=== PATIENT | female | born 1975 | race Caucasian/White ===

== ENCOUNTER 2020-07-01 19:59 | Emergency (ER) | payer OTHER, MEDICAID, SELFPAY ==
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
== END 2020-07-01 20:30 | disposition short-term general hospital (02) ==
LOC: ED 07-11 09:39
PROVIDERS: Emergency Provider Emergency Medicine; Family Provider Family Medicine; PCP Family Medicine; Referring Provider Emergency Medicine
DX: S32.9XXA Fracture of unspecified parts of lumbosacral spine and pelvis, initial encounter for closed fracture (principal); S71.112A Laceration without foreign body, left thigh, initial encounter; S71.111A Laceration without foreign body, right thigh, initial encounter; V89.2XXA Person injured in unspecified motor-vehicle accident, traffic, initial encounter

== ENCOUNTER → 2020-09-09 07:41 | Outpatient (CLI) | payer OTHER, MEDICAID, SELFPAY ==
--- NOTE | 2020-09-09 07:42 | DI.US.S_ITS ---
PROCEDURE: US ABDOMEN LIMITED INDICATIONS: ABDOMINAL MASS ?HERNIA TECHNIQUE: Real-time focused scanning was performed of the abdomen, with image documentation. COMPARISON: None. FINDINGS: Scanning is performed at the area of clinical concern at the region of the left posterior flank, inferior to the kidney. At this site, no masses can be seen. No hernias can be seen, including with standing and with Valsalva maneuver. IMPRESSION: Negative study, without mass or hernia seen at the area of clinical concern. Dictated by: Steven Varghese M.D. on 09/09/2020 at 9:16 Approved by: Steven Varghese M.D. on 09/09/2020 at 9:18
== END ==
PROVIDERS: PCP Family Medicine; Referring Provider Family Medicine; Visit Provider Family Medicine
DX: R19.00 Intra-abdominal and pelvic swelling, mass and lump, unspecified site (principal)
CPT/HCPCS: 76705

== ENCOUNTER → 2020-09-27 12:12 | Outpatient (CLI) | payer OTHER, MEDICAID, SELFPAY ==
--- NOTE | 2020-09-27 12:13 | DI.CT.S_ITS ---
PROCEDURE: CT ABDOMEN WO CON INDICATIONS: Left flank pain TECHNIQUE: After the administration of oral contrast, 5 mm thick sections acquired from the diaphragms to the iliac crests. 5 mm coronal and sagittal reformats were then performed. For radiation dose reduction, the following was used: automated exposure control, adjustment of mA and/or kV according to patient size. COMPARISON: None. FINDINGS: Image quality: Excellent. Lung bases: Lung bases are clear. Heart size is normal. Tiny hiatal hernia. Solid organs: Liver is prominent in size measuring 21 cm in length. Gallbladder is normal . Pancreas is normal in contours. Spleen is normal in size. No adrenal nodules. Both kidneys are normal in size, without hydronephrosis or nephrolithiasis. Peritoneum and bowel: Bowel loops demonstrate normal wall thickness and caliber. No free fluid or air. Nodes and vessels: No retroperitoneal or mesenteric adenopathy by size criteria. Aorta and inferior vena cava are normal in size. Bones: Multiple nonacute healing right rib fractures are noted (6th, 7th, 8th, and 9th ribs). There is a non acute healing fracture involving the left 12th rib. There is a nonacute healing left iliac crest fracture. There are are old fractures versus congenital nonfusion of the left 1st, 2nd, 3rd and 4th transverse processes. No vertebral body compression fractures. Miscellaneous: A tiny fat containing umbilical hernia is noted. IMPRESSION: 1. Mild hepatomegaly. 2. Multiple nonacute healing or healed right rib fractures and the left 12th rib fracture. 3. A healing left iliac crest fracture. 4. 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 5. A tiny fat containing umbilical hernia. Dictated by: Eliane Fink M.D. on 09/27/2020 at 15:42 Approved by: Eliane Fink M.D. on 09/27/2020 at 16:36
== END ==
PROVIDERS: PCP Family Medicine; Referring Provider Family Medicine; Visit Provider Family Medicine
DX: R10.9 Unspecified abdominal pain (principal); R16.0 Hepatomegaly, not elsewhere classified
CPT/HCPCS: 74150

== ENCOUNTER 2020-10-05 09:00 | Outpatient (RCR) | payer OTHER, MEDICAID, SELFPAY ==
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
--- NOTE | 2020-08-17 09:19 | PT-OP ANOTE ---
Pt arrives to appointment. She states that she is scheduled for a closed manipulation of her right knee tomorrow and will have to spend the night in the hospital at . She will be getting some sort of catheter at her knee afterwards to help with the ROM. She did not get to ask the orthopedist the PT questions and so she will ask post-op (PT writes out for pt: need new PT order post-manipulation with any WB or brace precautions, range precautions, a rehab protocol, ability to strengthen d/t previous left LE precautions d/t iliac fracture). Pt states that her BP is better after doing the Buteyko breathing. She has limited allowed appointments with [facility] this year and so did not treat today. Increased frequency to 2x/wk for the next two weeks.
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
--- NOTE | 2020-08-23 09:57 | PT.OPPOC ---
Physical, Occupational & Speech Therapy At [facility] Current Diagnoses Benign paroxysmal vertigo, unspecified ear (08/23/20) Other internal derangements of right knee (08/23/20) Concussion with loss of consciousness of unspecified duration, subsequent encounter (08/23/20) Fracture of body of sternum, subsequent encounter for fracture with routine healing (08/23/20) Unspecified fracture of left ilium, subsequent encounter for fracture with routine healing (08/23/20) Visit Care Team Role Provider Type Darío Vincent MD Primary Care Provider Physician Specialty: Family Practice Address: [address] [place] [address], [id number] Email: [email or web address] Wynne Attending Provider Non-Staff Referring Provider Specialty: Medical Address: [address] [place] [address], [facility] Email: Plan Of Care PT-OP-T Assessment and Plan Start: 08/01/20 07:22 Freq: Status: Active Protocol: Document 08/23/20 08:17 MB (Rec: 08/23/20 09:05 MB [id number]) Physical Therapy Assessment Rehab Potential Rehabilitation Potential Good Evaluation Complexity Number of Personal Factors/Comorbidities 1-2 Number of Body Systems Impaired 1-2 Clinical Presentation at Evaluation Stable Impairments Impairments Activity Tolerance,Balance, Edema,Functional Activities, Functional Mobility,Gait, Integument,Pain,ROM,Soft Tissue Mobility,Strength, Transfers Goals 5 Seismic Prospecting Observer Goal (LTG) Pt will gait train at least 1500 feet in 6 minutes without AD to return to PLOF by . 08/23/20: Pt cannot tolerate 6MWT. Her gait is antalgic, she does not bring in her AD today. She walks stiff-legged with her right knee, and right toe catches on carpet, decreased heel strike and toe push off LTG Duration 8 weeks 4 Seismic Prospecting Observer Goal (LTG) Pt will present with improved right knee AROM to 0-125 deg to improve functional transfers and gait by 10/21/20. 08/23/20: AROM right knee in supine today: 10-70 deg LTG Duration 8 weeks 3 Residential Goal (LTG) Pt will perform WNLs on a standardized balance test to decrease fall risk by 10/21/20. 08/23/20: Pt cannot tolerate balance testing today LTG Duration 8 weeks 2 Residential Goal (LTG) Pt will perform progressive HEP with I including flexibility, ROM, gait and balance exercises to improve overall ROM, pain and gait by 10/21/20. 08/23/20: HS sitting and supine, APs, QS, hip abduction and adduction and rolling pin, SLR , hamstring stretch in hook lying and Buteyko breathing LTG Duration 8 weeks 1 Residential Goal (LTG) Pt will present with improved LEF score to reflect no more than 20% impairment to allow return to work by 10/21/20. 08/23/20: LEF score reflects 66. 25% impairment LTG Duration 8 weeks Assessment Summary Assessment Pt s/p right knee closed manipulation under anesthesia on 08/18/20. She reports increased right calf and anterior knee pain and feeling of instability if she goes to extension WB on her right leg . PT documents on LEF, range, gait and HEP goals today and updates goals. Pt will benefit from ongoing PT to improve range, balance, strengthening and gait. Barriers to PT including multiple body injuries including fractures of sternum, right ribs and left iliac crest as well as left knee surgery. Physical Therapy Plan Frequency and Duration Frequency of Treatment 2x/Week Duration of Treatment 8 weeks Plan of Care Start Date 08/23/20 Plan of Care End Date 10/21/20 Therapeutic Interventions Therapeutic Interventions Balance Training,Canalithic Repositioning,Coordination Training,Gait Training,Home Exercise Program,Manual Therapy,Neuromuscular Re- education,Patient/Caregiver Education,Self-Care/Home Management,Soft Tissue Mobilization,Taping, Therapeutic Activities, Therapeutic Exercises Modalities Cold Pack/Ice Massage,Electric Stimulation,Hot Packs, Ultrasound Other Therapeutic Interventions Pt denies sensory changes Next Visit Focus/Plan Next Note Type Treatment Note Next Visit Plan Recumbent elliptical again. Consider knee flexion stretch gently over step and check if pt has a place to perform at home. Also, TKE. In future treatments: LAQ and thoracic mobility with breathing, other manual work Plan of Care Dates Plan of Care Start Date 08/23/20 Plan of Care End Date 10/21/20 Electronically Signed by: Rehana Milton, PT 08/23/20 0957 Please Sign and Return: I have reviewed this Plan of Care and certify that the skilled therapy services above are required to meet the patient?s needs. Physician Signature Date Printed Name and Credentials Clinical Instructor Signature Printed Name and Credentials
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
--- NOTE | 2020-09-21 10:02 | PT.OPPOC ---
Addendum entered and electronically signed by Rehana Milton PT 09/22/20 08:35: Request was received to send to Dr. Vincent Original Note: Physical, Occupational & Speech Therapy At [facility] Current Diagnoses Benign paroxysmal vertigo, unspecified ear (09/21/20) Other internal derangements of right knee (09/21/20) Concussion with loss of consciousness of unspecified duration, subsequent encounter (09/21/20) Fracture of body of sternum, subsequent encounter for fracture with routine healing (09/21/20) Unspecified fracture of left ilium, subsequent encounter for fracture with routine healing (09/21/20) Visit Care Team Role Provider Type Darío Vincent MD Primary Care Provider Physician Specialty: Family Practice Address: [address] [place] [address], [facility] Email: [email or web address] [email or web address] Attending Provider Non-Staff Referring Provider Specialty: Medical Address: [address] [place] [address], [facility] Email: Plan Of Care PT-OP-T Assessment and Plan Start: 08/01/20 07:22 Freq: Status: Active Protocol: Document 09/21/20 09:02 MB (Rec: 09/21/20 09:45 MB [id number]) Physical Therapy Assessment Rehab Potential Rehabilitation Potential Excellent Evaluation Complexity Number of Personal Factors/Comorbidities 1-2 Number of Body Systems Impaired 1-2 Clinical Presentation at Evaluation Stable Impairments Impairments Balance,Functional Activities, Functional Mobility,Gait, Integument,Pain,Posture,ROM, Soft Tissue Mobility,Strength, Vestibular Goals 5 Snf Goal (LTG) Pt will gait train at least 1600 feet in 6 minutes without AD to return to PLOF by . 09/21/20: Pt gait trains 1497 ft in 6 minutes LTG Duration 4 weeks 4 Hatchery Helper Goal (LTG) Pt will present with improved right knee AROM to 0-125 deg to improve functional transfers and gait by 10/13/20. 09/21/20: AROM in supine: 3-110 deg LTG Duration 4 weeks 3 Hatchery Helper Goal (LTG) Pt will perform WNLs on a standardized balance test to decrease fall risk by 10/13/20. 09/21/20: Socks and no shoes: Pt cannot get into full Romberg d/t knees. She is able to perform slow head turns with position. EC is more challenging. Semi tandem, same progression and no LOB 08/23/20: Pt cannot tolerate balance testing today LTG Duration 4 weeks 2 Snf Goal (LTG) Pt will perform progressive HEP with I including flexibility, ROM, gait and balance exercises to improve overall ROM, pain and gait by 10/13/20. 09/21/20: Everday: Butekyo breathing, balance exercises, hamstring, Delgado and hip rotator stretches and SLR, rolling pin self-massage and then sitting heel slide 3x/wk or as needed: racquet ball massage, pelvic realignment exercises, prone hamstring curl LTG Duration 4 weeks 1 Snf Goal (LTG) Pt will present with improved LEF score to reflect no more than 20% impairment to allow return to work by 10/13/20. 11/21/20: LEF score reflects 42 .5% impairment, which is 14% improvement since last progress note LTG Duration 4 weeks Progress Towards Goals Progress Towards Goals Progressing Toward Goals Assessment Summary Assessment Pt has progressed towards all PT goals since starting PT. These include LEF, ROM, balance, HEP and 6MWT goals. She will con't to benefit from PT for strengthening, balance , gait activities and exercises and manual PT. Physical Therapy Plan Frequency and Duration Frequency of Treatment 2x/Week Duration of Treatment 8 weeks Plan of Care Start Date 09/21/20 Plan of Care End Date 10/13/20 Therapeutic Interventions Therapeutic Interventions Balance Training,Canalithic Repositioning,Coordination Training,Gait Training,Home Exercise Program,Manual Therapy,Neuromuscular Re- education,Patient/Caregiver Education,Self-Care/Home Management,Soft Tissue Mobilization,Taping, Therapeutic Activities, Therapeutic Exercises Modalities Cold Pack/Ice Massage,Electric Stimulation,Hot Packs, Ultrasound Next Visit Focus/Plan Next Note Type Treatment Note Next Visit Plan Core exercises, hook lying clam, further standing balance and strengthening exercises, sitting ankle strengthening exercises Plan of Care Dates Plan of Care Start Date 09/21/20 Plan of Care End Date 10/13/20 Electronically Signed by: Rehana Milton, PT 09/21/20 1002 Please Sign and Return: I have reviewed this Plan of Care and certify that the skilled therapy services above are required to meet the patient?s needs. Physician Signature Date Printed Name and Credentials Clinical Instructor Signature Printed Name and Credentials
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
== END 2021-01-30 10:20 | disposition home or self-care (01) ==
LOC: PHYS 09:00
PROVIDERS: PCP Family Medicine; Referring Provider Nurse Practitioner; Visit Provider Nurse Practitioner
DX: S32.302D Unspecified fracture of left ilium, subsequent encounter for fracture with routine healing (principal); M23.8X1 Other internal derangements of right knee; H81.10 Benign paroxysmal vertigo, unspecified ear; S06.0X9D Concussion with loss of consciousness of unspecified duration, subsequent encounter; S22.22XD Fracture of body of sternum, subsequent encounter for fracture with routine healing
CPT/HCPCS: 97110; 97112; 97116; 97140; 97163; 97530; 97535

== ENCOUNTER → 2020-10-12 10:54 | Outpatient (CLI) | payer OTHER, MEDICAID, SELFPAY ==
[2020-10-12 11:49] LABS: COVID19 -Nasal RAPID Negative (Negative)
== END ==
PROVIDERS: PCP Family Medicine; Visit Provider Surgery
DX: Z20.822 Contact with and (suspected) exposure to COVID-19 (principal)
CPT/HCPCS: 87635; C9803

== ENCOUNTER 2020-10-13 09:03 | Observation (INO) | payer OTHER, MEDICAID, SELFPAY ==
[2020-10-13] VITALS (27 sets, daily range): BP systolic 91–142; BP diastolic 49–80; PULSE 60–98; RESP 10–20; TEMP 36.4–37; O2SAT 94–100; BMI 31.6
[2020-10-13] MEDS: LACTATED RINGERS 1,000 ML 100 ML IV (09:49)
--- NOTE | 2020-10-13 09:53 | PM.PREOP ---
Pre-operative Note Interval Note History & Physical reviewed/Exam performed by Physician: Yes Changes to H&P: No
[2020-10-13] MEDS: CEFAZOLIN 2 GM/100 ML FROZ.PIGGY IV (10:10)
[2020-10-13] MEDS: BUPIVACAINE LIPOSOME 266 MG/20 ML VIAL INJ (10:43)
[2020-10-13] MEDS: BUPIVACAINE 0.25% (PF) VIAL 30 ML INJ (10:43)
--- NOTE | 2020-10-13 10:45 | SUR.OPER ---
Lateral on cortes bag, head on pillow, gel axillary roll in place, bottom leg bent with gel pad under knee to foot, upper leg straight and supported with pillows. Upper arm supported by pillows and secured over bottom arm to padded arm board. Safety belt at hip, tape over blanket lower legs.
[2020-10-13] MEDS: OXYCODONE IR 5 MG TABLET PO ×4 (12:48→20:12)
[2020-10-13] MEDS: fentaNYL 100 MCG/2 ML INJ IV ×8 (12:58→13:41)
[2020-10-13] MEDS: HYDROMORPHONE 2 MG INJ (13:42)
[2020-10-13] MEDS: HYDROMORPHONE 2 MG INJ IV (13:46)
--- NOTE | 2020-10-13 13:47 | SUR.PHASEI ---
verbal order by dr. naranjo to give 1mg dilaudid iv now, then 1mg after that.
[2020-10-13 14:43] LABS: Add Manual Diff / Slide Review NO; Basophils Absolute Auto 0 /uL (0-100); Basophils Percent Auto 0.2 % (0-2); Eosinophils Absolute Auto 0 /uL (0-450); Eosinophils Percent Auto 0.1 % (2-4); Hematocrit 44.2 % (36-46); Hemoglobin 14.5 g/dL (12.0-16.0); Lymphocytes Absolute Auto 600 /uL (1100-4500); Lymphocytes Percent Auto 4.2 % (25-40); Mean Corpuscular HGB Conc 32.8 % (30-36); Mean Corpuscular Hemoglobin 31.6 PG (26-34); Mean Corpuscular Volume 96.3 fL (80-100); Monocytes Absolute Auto 200 /uL (0-900); Monocytes Percent Auto 1.3 % (3-14); Neutrophils Absolute Auto 14300 /uL (1500-7000); Neutrophils Percent Auto 94.2 % (50-75); Platelet Count 272 X10^3/uL (150-400); Red Blood Cell Count 4.59 X10^6/uL (4.0-5.2); White Blood Cell Count 15.2 X10^3/uL (4.5-11.0)
[2020-10-13 14:58] LABS: BUN Creatinine Ratio 20.3 (6-22); Blood Urea Nitrogen 12 mg/dL (7-17); Calcium 9.1 mg/dL (8.4-10.2); Carbon Dioxide 26 mmol/L (22-32); Chloride 105 mmol/L (98-107); Estimated Glomerular Filt Rate > 60.0 mL/min (>60); Glucose 134 mg/dL (70-100); HEMOLYSIS < 15 (0-50); Potassium 3.6 mmol/L (3.4-5.1); Sodium 137 mmol/L (137-145)
[2020-10-13] MEDS: HYDROMORPHONE 1 MG INJ IV ×2 (15:58→19:12)
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
[2020-10-13] MEDS: FLUoxetine 20 MG CAPSULE 40 MG PO (21:13)
[2020-10-13] MEDS: KETOROLAC 30 MG/ML VIAL IV (21:13)
[2020-10-13] MEDS: TRAZODONE 100 MG TABLET 150 MG PO (21:13)
[2020-10-13] MEDS: CYCLOBENZAPRINE 10 MG TABLET PO (21:14)
[2020-10-14] MEDS: PANTOPRAZOLE 20 MG TABLET PO (05:27)
[2020-10-14] MEDS: KETOROLAC 30 MG/ML VIAL IV ×2 (05:27→14:31)
[2020-10-14 05:50] VITALS: BP 102/62; PULSE 66; RESP 18; TEMP 36.4; O2SAT 96
--- NOTE | 2020-10-14 07:39 | PM.PNPO.1 ---
Subjective Subjective Date Patient Seen: 10/14/20 Time Patient Seen: 07:39 Interval history: Yesterday afternoon she had significant abdominal pain requiring IV pain medication to adequately control. This morning she feels much better however she has not ambulated. No significant drain output overnight. No nausea vomiting. Exam Vital Signs (past 8 hours): - 10/14/20 05:50 Temperature 97.5 F L Pulse Rate 66 Respiratory Rate 18 Blood Pressure 102/62 Pulse Oximetry 96 Oxygen Delivery Method Room Air Oxygen Flow Rate 0 Narrative Exam Narrative: General adult female alert oriented no acute distress Abdomen left flank incision with dressing over wanted no saturation. Drain no output within the bulb there is a scant amount of serosanguineous fluid within the tube. Appropriately tender to palpation. Extremities warm well perfused. Objective Labs Result Diagrams: 10/13/20 14:31 10/13/20 14:31 Labs: Laboratory Results - last 24 hr 10/13/20 10/13/20 14:31 14:31 WBC 15.2 H RBC 4.59 Hgb 14.5 Hct 44.2 MCV 96.3 MCH 31.6 MCHC 32.8 RDW 13.0 Plt Count 272 Neut % (Auto) 94.2 H Lymph % (Auto) 4.2 L Ramsey % (Auto) 1.3 L Eos % (Auto) 0.1 L Baso % (Auto) 0.2 Neut # (Auto) 76675 H Lymph # (Auto) 600 L Ramsey # (Auto) 200 Eos # (Auto) 0 Baso # (Auto) 0 Sodium 137 Potassium 3.6 Chloride 105 Carbon Dioxide 26 BUN 12 Creatinine 0.59 Estimated GFR > 60.0 BUN/Creatinine Ratio 20.3 Glucose 134 H Calcium 9.1 PFSH Medical History (Updated 10/13/20 @ 08:59 by Chari Fischer RN) Arthritis Chicken pox (1981) CTS (carpal tunnel syndrome) (2004) Depression (2015) Fractures (2010) GERD (gastroesophageal reflux disease) Herpes Lower extremity surgery planned Migraines (1986) Neuropathy Surgical History Anesthesia History of third molar tooth extraction Status post delivery (01/11/09) Family History Father Age: 72 Colon cancer Hypertension Grandfather Prostate cancer Heart disease Hypertension High cholesterol Grandmother Breast cancer Heart disease Brother No problems noted. Mother No problems noted. Grandfather No problems noted. Grandmother No problems noted. Sister No problems noted. Sister No problems noted. Social History marital status: household members: spouse and children Smoking Status: Former smoker alcohol intake: former substance use type: does not use Assessment & Plan Post-op Postoperative Procedures: Procedures Operation Date: 10/13/20 10:00 Actual Procedures Side Surgeon p Hernia Repair Left Flank with Mesh Left Harley Morton MD Postoperative plan narrative: 45-year-old female postoperative day 1 status post open repair of a left traumatic flank hernia. Her issue at this point is pain control. If she can be adequately controlled with non IV medications she currently has oxycodone, Flexeril and Toradol than she may discharge home today. Drain to be removed prior to her discharge either today or tomorrow.
[2020-10-14 08:16] VITALS: BP 106/63; PULSE 66; RESP 14; TEMP 36.9; O2SAT 96
[2020-10-14] MEDS: CYCLOBENZAPRINE 10 MG TABLET PO ×2 (09:07→14:32)
[2020-10-14] MEDS: OXYCODONE IR 5 MG TABLET PO ×2 (09:07→12:34)
[2020-10-14 12:00] VITALS: BP 106/97; PULSE 75; RESP 14; TEMP 36.6; O2SAT 98
[2020-10-14] MEDS: TIZANIDINE 4 MG TABLET 2 MG PO (12:34)
--- NOTE | 2020-10-14 14:51 | PM.DS.1 ---
History of Present Illness History of Present Illness Chief complaint: [facility] [place] Narrative: Patient is a woman admitted for repair of a traumatic flank hernia on the left. Discharge Providers Provider Discharge Date: 10/14/20 Primary care physician: Darío Vincent MD Discharge provider: Eldon Fernando MD Summary Hospital Course Discharge Diagnosis: Traumatic flank hernia chronic Alcoholism chronic Gastroesophageal reflux disease chronic History of migraine headaches chronic Chronic depression Obesity with a BMI of 32. Chronic Hospital Course: Patient underwent repair of her hernia. A drain was placed and she was brought in overnight. The following day after ambulating and eating and tolerating everything well and with minimal drainage she was discharged at her request to follow up in the office. The drain was ordered to be removed prior to her discharge. Status at Discharge Cognitive/behavioral status at discharge: at baseline, oriented Functional status at discharge: independent ambulation Overall status at discharge: patient is progressing back to baseline Time Spent with Patient Time spent: Less than 30 minutes Exam Vital Signs (past 8 hours): - 10/14/20 08:16 Temperature 98.4 F Pulse Rate 66 Respiratory Rate 14 Blood Pressure 106/63 Pulse Oximetry 96 Oxygen Delivery Method Room Air Oxygen Flow Rate 0 Objective Labs Result Diagrams: 10/13/20 14:31 10/13/20 14:31 Labs: Laboratory Results - last 24 hr 10/13/20 14:31 Sodium 137 Potassium 3.6 Chloride 105 Carbon Dioxide 26 BUN 12 Creatinine 0.59 Estimated GFR > 60.0 BUN/Creatinine Ratio 20.3 Glucose 134 H Calcium 9.1 PFSH Medical History (Updated 10/13/20 @ 08:59 by Chari Fischer RN) Arthritis Chicken pox (1981) CTS (carpal tunnel syndrome) (2004) Depression (2015) Fractures (2010) GERD (gastroesophageal reflux disease) Herpes Lower extremity surgery planned Migraines (1986) Neuropathy Surgical History Anesthesia History of third molar tooth extraction Status post delivery (01/11/09) Family History Father Age: 72 Colon cancer Hypertension Grandfather Prostate cancer Heart disease Hypertension High cholesterol Grandmother Breast cancer Heart disease Brother No problems noted. Mother No problems noted. Grandfather No problems noted. Grandmother No problems noted. Sister No problems noted. Sister No problems noted. Social History marital status: household members: spouse and children Smoking Status: Former smoker alcohol intake: former substance use type: does not use Discharge Plan Discharge Plan Patient Disposition: Home Provider Discharge Comment: No lifting >20 lbs x 6 weeks. No driving while taking narcotics. Ok to shower /3 but do not soak the wounds until seen in follow up. Discharge orders & Medications Discharge Orders: Discharge (Order); Ordered 10/14/20 Ordered By: Eldon Fernando Prescriptions: New docusate sodium [Colace] 100 mg capsule 100 mg PO BID Qty: 30 RF: 0 oxycodone 5 mg tablet 5 mg PO Q6H PRN (Reason: pain) Qty: 40 RF: 0 acetaminophen [Tylenol] 325 mg capsule 650 mg PO QID PRN (Reason: pain) Qty: 60 RF: 0 cyclobenzaprine 10 mg tablet 10 mg PO TID Qty: 30 RF: 0 Continued rizatriptan [Maxalt] 10 mg tablet 10 mg PO SEE INSTRUCTIONS PRN (Reason: migraine headache) Qty: 10 RF: 5 disulfiram 250 mg tablet 250 mg PO DAILY Qty: 30 RF: 1 sumatriptan succinate [Imitrex] 100 mg tablet 100 mg PO PRN PRN (Reason: migraine headache) Qty: 7 RF: 1 trazodone 100 mg tablet See Rx Instructions .ROUTE .COMPLEX Qty: 45 RF: 3 fluoxetine [Prozac] 40 mg capsule 40 mg PO DAILY Qty: 90 RF: 0 tizanidine 2 mg tablet 2 mg PO TID PRN (Reason: muscle spasticity) Qty: 90 RF: 0 ibuprofen 600 mg Tablet 600 mg PO DAILY RF: 0 lansoprazole 15 mg Capsule,Delayed Release(Dr/Ec) 15 mg PO BEDTIME RF: 0 Follow up/Referrals: Harley Morton MD [Physician] - 2 Weeks Diet/Activity/Treatments Diet: Regular Skin/Wound/Dressing Care Report to your healthcare provider any signs of infection, such as:: chills, fever, increased pain, unusual drainage and unusual redness Visit Report/Discharge Packet Instructions: DI for Hernia Repair, DI for Constipation, [facility]: Wound Care Discharge Data Primary Care Provider: Darío Vincent Attending Provider: Harley Morton
--- NOTE | 2020-10-14 15:47 | PC.NURSE ---
Feels ready to d/c home and would like MD called to see if she can. Has been up and amb in hallways. Tolerates diet w/out problems. Vds w/out diff. Po pain meds have been effective. Office called and message left for MD - updated on status and pt would like to d/c home.
[2020-10-14 15:49] VITALS: BP 100/56; PULSE 72; RESP 18; TEMP 36.4; O2SAT 97
--- NOTE | 2020-10-14 16:11 | CM.DANOTE ---
Discharge Planning/Care Management DCP: assessment: case discussed in Team Rounds. Pt post op day one and was very eager to go home if Dr. Morton agreed. He agreed to check in later, did so and pt was ok'd for d/c to home. No d/c concerns were identified by the care team members for this 45 year old who admitted for a scheduled SDC to OBS procedure. Home with family support. CM Discharge Assessment Start: 10/14/20 16:11 Freq: Status: Active Protocol: Document 10/14/20 16:11 ITV (Rec: 10/14/20 16:11 ITV [id number]) Discharge Planning Assessment Advance Directives? No Household Members spouse,children Document 10/14/20 16:11 ITV (Rec: 10/14/20 16:11 ITV [id number]) Discharge Planning Assessment Advance Directives? No History Provided By Medical Record Household Members spouse,children Discharge Plan Home
--- NOTE | 2020-10-14 16:24 | PC.NURSE ---
Addendum entered by Britta Jimenez R.N. 10/14/20 16:44: Pt left hospital via wheelchair accompanied by COMPLIANCE VICE PRESIDENT. Pt left hospital in stable condition. Original Note: Pt awake, alert, conversant in bed. Pt is prepared to go home and desires discharge. Bulb suction released from Bebo drain to left flank. Suture clipped at site and removed and drain discontinued intact without difficulty. Pt tolerated this well. Folded 2 x 2 placed against drain site and covered with tegaderm. Iv discontinued intact. Aquacel dressing is intact to left flank. Discharge instructions provided to pt in written and verbal format. Questions answered as appropriate. Pt reports has follow up scheduled. Pt reports able to dress self without difficulty and will notify staff when ready to depart. On telephone to spouse.
== END 2020-10-14 16:44 | disposition home or self-care (01) ==
LOC: OR 09:03 → AC 12:27 → OR 10-14 15:48 → AC 10-14 15:48
PROVIDERS: Admitting Provider Surgery; PCP Family Medicine; Referring Provider Family Medicine; Visit Provider Surgery
PROC: (CPT 49560; principal; 2020-10-13 10:00)
DX: K45.8 Other specified abdominal hernia without obstruction or gangrene (principal); F32.9 Major depressive disorder, single episode, unspecified; K21.9 Gastro-esophageal reflux disease without esophagitis
CPT/HCPCS: 49560; 49568; 36415; 80048; 82962; 85025; C1781; G0378; C9290; J0690; J1100; J1170; J1885; J2250; J2405; J2704; J3010

== ENCOUNTER → 2020-11-29 15:55 | Outpatient (CLI) | payer OTHER, MEDICAID, SELFPAY ==
[2020-10-13 14:41] VITALS: BMI 31.6
--- NOTE | 2020-11-29 15:56 | DI.RAD.S_ITS ---
PROCEDURE: XR ELBOW LT MIN 3V INDICATIONS: left elbow bursistis TECHNIQUE: 3 views of the elbow were acquired. COMPARISON: None. FINDINGS: Bones: No fractures or dislocations. No suspicious bony lesions. Soft tissues: No elbow joint effusion. No suspicious soft tissue calcifications. IMPRESSION: No visualized acute fracture or dislocation. However, if clinical concern and/or pain persist, short interval imaging followup in 7-10 days is recommended, as occult injury cannot be definitively excluded. Dictated by: Elba Levine M.D. on 11/29/2020 at 17:27 Approved by: Elba Levine M.D. on 11/29/2020 at 17:27
== END ==
PROVIDERS: PCP Family Medicine; Referring Provider Family Medicine; Visit Provider Family Medicine
DX: M25.522 Pain in left elbow (principal); M70.32 Other bursitis of elbow, left elbow
CPT/HCPCS: 73080

== ENCOUNTER → 2021-11-13 07:40 | Outpatient (CLI) | payer OTHER, SELFPAY ==
[2020-10-13 14:41] VITALS: BMI 31.6
--- NOTE | 2021-11-13 07:42 | DI.RAD.S_ITS ---
PROCEDURE: XR TOE LT MIN 2V INDICATIONS: recurrent callus/corn top of 5th toe TECHNIQUE: 3 views of the 5th toe(s) acquired. COMPARISON: None. FINDINGS: Bones: No fractures or dislocations. No suspicious bony lesions. Soft tissues: No suspicious soft tissue densities. No radiopaque foreign body. IMPRESSION: No significant osseous abnormality. Dictated by: Johan Restrepo M.D. on 11/13/2021 at 8:46 Approved by: Johan Restrepo M.D. on 11/13/2021 at 8:48
--- NOTE | 2021-11-13 07:42 | DI.MG.S_ITS ---
BILATERAL DIGITAL SCREENING MAMMOGRAM 3D/2D WITH CAD: 11/13/2021 CLINICAL: Routine screening. Baseline exam. No prior exams were available for comparison. There are scattered fibroglandular elements in both breasts. Current study was also evaluated with a Computer Aided Detection (CAD) system. There are grouped heterogeneous calcifications in the right breast at 11 o'clock anterior depth. No other significant masses, calcifications, or other findings are seen in either breast. IMPRESSION: INCOMPLETE: NEEDS ADDITIONAL IMAGING EVALUATION The grouped heterogeneous calcifications in the right breast are indeterminate. Diagnostic mammogram for additional views to include mediolateral and spot magnification views is recommended. This exam was interpreted at Station ID: [id number]. NOTE: For mammograms, a report in lay terms will be sent to the patient. Approximately 15% of breast malignancies will not be visualized mammographically. In the management of a palpable breast mass, a negative mammogram must not discourage biopsy of a clinically suspicious lesion. Electronically Signed By: Rufino Rodriguez M.D. at/:11/13/2021 08:20:25 letter sent: Additional Imaging Needed ACR BI-RADS Category 0: Incomplete 3340F
== END ==
PROVIDERS: PCP Family Medicine; Referring Provider Physician Assistant; Visit Provider Physician Assistant
DX: Z12.31 Encounter for screening mammogram for malignant neoplasm of breast (principal); M79.675 Pain in left toe(s)
CPT/HCPCS: 73660; 77063; 77067

== ENCOUNTER → 2021-11-18 07:44 | Outpatient (CLI) | payer OTHER, SELFPAY ==
[2020-10-13 14:41] VITALS: BMI 31.6
[2021-11-18 09:13] LABS: Add Manual Diff / Slide Review NO; Basophils Absolute Auto 0 /uL (0-100); Basophils Percent Auto 0.8 % (0-2); Eosinophils Absolute Auto 100 /uL (0-450); Eosinophils Percent Auto 1.8 % (2-4); Hematocrit 41.7 % (36-46); Hemoglobin 14.3 g/dL (12.0-16.0); Lymphocytes Absolute Auto 1100 /uL (1100-4500); Lymphocytes Percent Auto 18.5 % (25-40); Mean Corpuscular HGB Conc 34.2 % (30-36); Mean Corpuscular Hemoglobin 32.1 PG (26-34); Mean Corpuscular Volume 93.7 fL (80-100); Monocytes Absolute Auto 500 /uL (0-900); Monocytes Percent Auto 8.7 % (3-14); Neutrophils Absolute Auto 4200 /uL (1500-7000); Neutrophils Percent Auto 70.2 % (50-75); Platelet Count 240 X10^3/uL (150-400); Red Blood Cell Count 4.45 X10^6/uL (4.0-5.2); Red Cell Distribution Width 13.6 % (11.6-14.8); White Blood Cell Count 5.9 X10^3/uL (4.5-11.0)
[2021-11-18 10:09] LABS: Alanine Aminotransferase 16 IU/L (<35); Albumin 4.4 g/dL (3.5-5.0); Albumin Globulin Ratio 1.8 (1.0-2.8); Alkaline Phosphatase 51 U/L (38-126); Aspartate Aminotransferase 24 IU/L (14-36); BUN Creatinine Ratio 18.9 (6-22); Bilirubin Total 0.4 mg/dL (0.2-1.3); Blood Urea Nitrogen 18 mg/dL (7-17); Calcium 8.9 mg/dL (8.4-10.2); Carbon Dioxide 28 mmol/L (22-32); Chloride 106 mmol/L (98-107); Cholesterol 255 mg/dL (140-199); Estimated Glomerular Filt Rate > 60 mL/min (>60); Globulin 2.4 g/dL (1.7-4.1); Glucose 97 mg/dL (70-100); HDL Cholesterol 60 mg/dL (40-60); HEMOLYSIS < 15 (0-50); LDL Cholesterol Calculated 180 mg/dL (<100); Sodium 139 mmol/L (137-145); Total Protein 6.8 g/dL (6.3-8.2); Triglycerides 76 mg/dL (35-150)
[2021-11-18 10:57] LABS: Thyroid Stimulating Hormone 0.661 uIU/mL (0.47-4.68)
== END ==
PROVIDERS: PCP Family Medicine; Referring Provider Physician Assistant; Visit Provider Physician Assistant
DX: E78.5 Hyperlipidemia, unspecified (principal); Z13.0 Encounter for screening for diseases of the blood and blood-forming organs and certain disorders involving the immune mechanism
CPT/HCPCS: 36415; 80053; 80061; 84443; 85025

== ENCOUNTER → 2021-11-23 11:45 | Outpatient (CLI) | payer OTHER, SELFPAY ==
[2020-10-13 14:41] VITALS: BMI 31.6
--- NOTE | 2021-11-23 | DI.MG.S_ITS ---
UNILATERAL RIGHT DIGITAL DIAGNOSTIC MAMMOGRAM 3D/2D WITH ADDITIONAL VIEWS: 11/23/2021 CLINICAL: Additional evaluation requested from prior study. Comparison is made to exam dated: 11/13/2021 mammogram - [facility]. There are scattered fibroglandular elements in right breast. There are grouped pleomorphic calcifications in the right breast central to the nipple anterior depth. No other significant masses or calcifications are seen in the breast. IMPRESSION: SUSPICIOUS OF MALIGNANCY The grouped pleomorphic calcifications in the right breast are at a high suspicion for malignancy. A stereotactic biopsy is recommended. These findings and recommendation were discussed with the patient by Dr Cueva. This exam was interpreted at Station ID: [id number]. NOTE: For mammograms, a report in lay terms will be sent to the patient. Approximately 15% of breast malignancies will not be visualized mammographically. In the management of a palpable breast mass, a negative mammogram must not discourage biopsy of a clinically suspicious lesion. Electronically Signed By: Wood Herring acr/:11/23/2021 12:24:11 letter sent: Biopsy Required ACR BI-RADS Category 4c: Suspicious abnormality - moderate concern but not classic for malignancy [id number]
== END ==
PROVIDERS: PCP Family Medicine; Referring Provider Family Medicine; Visit Provider Family Medicine
DX: R92.8 Other abnormal and inconclusive findings on diagnostic imaging of breast (principal); R92.1 Mammographic calcification found on diagnostic imaging of breast
CPT/HCPCS: 77065; G0279

== ENCOUNTER → 2022-02-06 10:18 | Outpatient (CLI) | payer OTHER, SELFPAY ==
[2020-10-13 14:41] VITALS: BMI 31.6
[2022-02-06 12:01] LABS: COVID19 -Nasal RAPID Negative (Negative)
== END ==
PROVIDERS: PCP Family Medicine; Visit Provider Surgery
DX: Z20.822 Contact with and (suspected) exposure to COVID-19 (principal); Z01.812 Encounter for preprocedural laboratory examination
CPT/HCPCS: 87635; C9803

== ENCOUNTER 2022-02-07 06:59 | Day surgery (SDC) | payer OTHER, SELFPAY ==
[2020-10-13 14:41] VITALS: BMI 31.6
[2022-02-07] VITALS (8 sets, daily range): BP systolic 105–119; BP diastolic 64–72; PULSE 64–72; RESP 8–21; TEMP 36.3–36.8; O2SAT 95–97; BMI 33.3
--- NOTE | 2022-02-07 | PATH_ITS ---
[facility] Accession Number: [id number] . 01 Material submitted: . breast - RIGHT BREAST MASS . 01 Clinical history: . SHORT STITCH SUPERIOR, LONG STITCH LATERAL . 01 Diagnosis: Right Breast, Excision with Wire Localization: Complex sclerosing lesion with associated florid duct epithelial hyperplasia and calcifications. Background proliferative fibrocystic change. Previous needle biopsy site. Negative for significant atypia and malignancy. MRV 02/09/2022 1404 Local . 01 Comment: Flare Breaker slides of this case are also reviewed by Dr. Luz Marina Lai, who concurs with the given interpretation. . 01 Electronically signed: . Luma Matos MD, Pathologist NPI- [id number] . 01 Gross description: . Received in formalin in a specimen container, labeled with the patient's name and medical record number, right breast mass, short stitch superior, long stitch lateral, is previously oriented with a short stitch on superior resection margin and long stitch on lateral resection margin, partially disrupted, irregularly shaped fibroadipose tissue fragment that measures 4.3 cm from anterior to posterior, deep, 4.7 cm from superior to inferior, and 1.3 cm from medial to lateral. The superior resection margin is inked in yellow, deep resection margin is inked in black, medial resection margin is inked in blue, inferior resection margin is inked in red. Lateral resection margin is inked in green and superior resection margin is inked in orange. There is also a surgical wire inserted to the specimen from anterior to posterior (deep) aspect. The wire is removed. The specimen is serially sectioned to reveal solid gallego yellowish mass with a metallic surgical clip that measures 1.7 x 1.3 x 1.5 cm. The mass grossly focally abuts the superficial, lateral, inferior and medial resection margins. The mass is 3.4 cm away from the deep resection margin and grossly focally abuts the superior resection margin. The specimen is entirely sequentially submitted from superficial (anterior) to deep resection margin as follows: . A1: Serially sectioned superficial (anterior resection margin) entirely submitted. A2-A15: Entirely sequentially submitted specimen with mass in cassette A2-A5. (The slice with surgical metallic clip is cassette A3.) . The specimen processed on 02/08/2022 at 12:34 p.m. ([id number]) /MRV 02/08/2022 1442 Local . 01 Pathologist provided ICD-10: N64.9 . 01 CPT . 878640 Performed at: 01 [facility] [address] [place] [address], [place], [place] [id number] MD Ian Null MD Phone: [phone]
--- NOTE | 2022-02-07 | DI.MG.S_ITS ---
MAMMOGRAPHY GUIDED WIRE LOCALIZATION RIGHT BREAST WITH POST MAMMOGRAPHIC IMAGIN02/07/2022 CLINICAL: Right wire loc. Correlation is made to exams dated: 11/29/2021 specimen, 11/29/2021 stereotactic biopsy - [facility], 11/23/2021 mammogram, and 11/13/2021 mammogram - [facility]. A wire localization using mammography guidance was performed for the area of pleomorphic calcifications located in the right breast at 12 o'clock anterior depth. The skin was prepped in the usual manner. A J-hook wire was inserted into the targeted area under mammography guidance. Post placement mammographic imaging was obtained. IMPRESSION: WIRE LOCALIZATION Wire localization for the area of pleomorphic calcifications in the right breast at 12 o'clock anterior depth was successful. This exam was interpreted at Station ID: [id number]. Keith aaron/:02/08/2022 09:38:26
--- NOTE | 2022-02-07 | DI.MG.S_ITS ---
SPECIMEN RIGHT BREAST: 02/07/2022 CLINICAL: Right specimen. Correlation is made to exams dated: 02/07/2022 [facility], 11/29/2021 specimen, and 11/29/2021 stereotactic biopsy - [facility]. A surgical biopsy specimen was imaged for the area of pleomorphic calcifications located in the right breast at 12 o'clock anterior depth. IMPRESSION: SPECIMEN The imaged specimen includes the calcifications, a biopsy clip, and the distal portion of the biopsy wire. This exam was interpreted at Station ID: [id number]. Keith aaron/:02/08/2022 09:40:14
[2022-02-07] MEDS: LACTATED RINGERS 1,000 ML 100 ML IV (09:20)
--- NOTE | 2022-02-07 13:15 | PM.HP.1 ---
History of Present Illness History of Present Illness Date Patient Seen: 02/07/22 Time Patient Seen: 13:16 Chief complaint: [facility] Narrative: Rolanda Lugo is a 46 year old woman, with new diagnosis of right scerlosing breast lesion here for elective right wire guided lumpectomy. No interval changes in health. Patient History Medical History Arthritis Chicken pox (1981) CTS (carpal tunnel syndrome) (2004) Current smoker (05/10/16) Depression (2015) Flank hernia Fractures (2010) GERD (gastroesophageal reflux disease) Herpes Lower extremity surgery planned Migraines (1986) Neuropathy Surgical History Anesthesia History of third molar tooth extraction Status post delivery (01/11/09) Family & Social History Family History Father Age: 73 Colon cancer Hypertension Grandfather Prostate cancer Heart disease Hypertension High cholesterol Grandmother Breast cancer Heart disease Brother No problems noted. Mother No problems noted. Grandfather No problems noted. Grandmother No problems noted. Sister No problems noted. Sister No problems noted. Social History: household members spouse,children Tobacco & Substance use: Tobacco type cigarettes Smoking Status Former smoker alcohol intake former Substance Use Type does not use Meds Home Medications and Allergies Home Medications Medication Instructions Recorded Confirmed Type rizatriptan 10 mg tablet (Maxalt) 10 mg PO Q2H PRN migraine headache 11/07/21 02/07/22 Rx #10 tabs sumatriptan succinate 100 mg 100 mg PO Q2-4H PRN migraine 11/07/21 02/07/22 Rx tablet (Imitrex) headache #7 tabs fluoxetine 40 mg capsule See Rx Instructions .Route 11/14/21 02/07/22 Rx .COMPLEX #90 caps tizanidine 2 mg tablet See Rx Instructions .Route 01/16/22 02/07/22 Rx .COMPLEX #90 tabs trazodone 100 mg tablet See Rx Instructions .Route 01/16/22 02/07/22 Rx .COMPLEX #45 tabs Allergies Allergy/AdvReac Type Severity Reaction Status Date / Time No Known Drug Allergies Allergy Verified 02/07/22 07:36 Exam Vital Signs (past 8 hours): - 02/07/22 07:28 Temperature 98.3 F Pulse Rate 70 Respiratory Rate 16 Blood Pressure 119/71 Pulse Oximetry 97 Oxygen Delivery Method Room Air Oxygen Delivery Method Room Air Narrative Exam Narrative: General adult woman alert oriented no acute distress Chest nonlabored respirations Breast right breast is marked my initials. Assessment & Plan Assessment and plan (1) Sclerosing adenosis of right breast: Status: Acute Assessment & Plan narrative: 46-year-old woman with a benign right breast lesion here for elective needle-guided lumpectomy. Overview of the procedure was and again discussed with the patient including its risks of bleeding, infection, damage to surrounding structures, need for further surgery. Questions have been answered she is in agreement with this plan and will proceed. Time Spent With Patient Critical Care time: I spent a total of [] minutes of critical care time on this patient's care today; this time is exclusive of procedural time.
[2022-02-07] MEDS: CEFAZOLIN 2 GM/20 ML SYRINGE IV (13:34)
--- NOTE | 2022-02-07 13:40 | SUR.OPER ---
Supine on padded OR bed, head on pillow, arms secured on padded arm boards at <90 degrees abduction, legs uncrossed, safety belt at thigh, tape over blanket over lower legs. Directed and approved by surgeon
[2022-02-07] MEDS: BUPIVACAINE 0.5% (PF) VIAL 30 ML INJ (13:43)
[2022-02-07] MEDS: LACTATED RINGERS 1,000 ML 42 ML IV (14:09)
[2022-02-07] MEDS: OXYCODONE/ACETAMINOPHEN 5/325 TABLET 1 TAB PO ×2 (14:22→14:54)
--- NOTE | 2022-02-07 14:26 | PM.OP.1 ---
Operative Date/Time/Diagnoses Date of procedure: 02/07/22 Time of procedure: 14:27 Pre-op diagnosis: Right intra ductal papilloma Post-op diagnosis: same Procedure & Clinicians Procedure: Right needle guided lumpectomy Same procedure as scheduled: Yes Indications: 46-year-old woman with a right intra ductal papilloma who elects for surgical excision for diagnostic purpose. Surgeon: Harley Morton Click Yes if Unassisted: Yes Anesthesia Type: General Operative Notes Findings: Excision is consistent with papilloma. Wire and clip are within the specimen. Specimen(s): other (Right breast lesion) Estimated Blood Loss (mL): 20 Procedure in detail: The patient underwent needle localized prior to the operation. They were brought to the operating room and placed supine on the table. Bilateral lower extremity compression devices were applied. They were intubated with an LMA. They were prepped and draped in sterile fashion. Time-out was performed. A curvilinear incision on the superior aspect of the right areola was made and subcutaneous tissues were divided. The localizing wire was identified and then brought back within the incision. The end of the wire was within an anterior depth breast mass of approximately 2 cm. The mass was excised with the wire and the clip. Specimen was marked short stitch superior long stitch lateral. Imaging demonstrated that the specimen contained the wire and the associated clip. Subcutaneous tissues were reapproximated with 3 0 Vicryl sutures skin closed with Monocryl followed by application of Dermabond. The counts were correct. They emerged from anesthesia and were transfered to recovery in stable condition. Complications: none Post-operative Condition: stable Disposition: same day surgery
--- NOTE | 2022-02-07 14:34 | SUR.PHASEI ---
Patient grimacing, stated that pain was 5/10 and desired Rx. Noticed that patient was using left hand to hold right arm across the body into a position of more comfort. Offered and gave pillow support under right arm. Patient stated that it relieved the pain to the point that she declined the IV narcotic. Eyes closed; resting.
== END 2022-02-07 15:15 | disposition home or self-care (01) ==
PROVIDERS: PCP Family Medicine; Referring Provider Surgery; Visit Provider Surgery
PROC: (CPT 19301; principal; 2022-02-07 12:45)
DX: N64.9 Disorder of breast, unspecified (principal)
CPT/HCPCS: 19125; 19281; 76098; 82962; C1819; J0690; J1100; J2250; J2405; J2704; J3010

== ENCOUNTER → 2022-11-13 07:05 | Outpatient (CLI) | payer OTHER, SELFPAY ==
[2020-10-13 14:41] VITALS: BMI 31.6
[2022-11-13 08:11] LABS: Add Manual Diff / Slide Review NO; Basophils Absolute Auto 0 /uL (0-100); Basophils Percent Auto 0.7 % (0-2); Eosinophils Absolute Auto 200 /uL (0-450); Eosinophils Percent Auto 2.9 % (2-4); Hematocrit 38.1 % (36-46); Hemoglobin 13.2 g/dL (12.0-16.0); Lymphocytes Absolute Auto 1300 /uL (1100-4500); Lymphocytes Percent Auto 25.5 % (25-40); Mean Corpuscular HGB Conc 34.7 % (30-36); Mean Corpuscular Hemoglobin 32.2 PG (26-34); Mean Corpuscular Volume 92.9 fL (80-100); Monocytes Absolute Auto 500 /uL (0-900); Monocytes Percent Auto 9.2 % (3-14); Neutrophils Absolute Auto 3200 /uL (1500-7000); Neutrophils Percent Auto 61.7 % (50-75); Platelet Count 227 X10^3/uL (150-400); Red Cell Distribution Width 13.4 % (11.6-14.8); White Blood Cell Count 5.2 X10^3/uL (4.5-11.0)
[2022-11-13 08:41] LABS: Alanine Aminotransferase 18 IU/L (<35); Albumin 3.9 g/dL (3.5-5.0); Albumin Globulin Ratio 1.8 (1.0-2.8); Alkaline Phosphatase 47 U/L (38-126); Aspartate Aminotransferase 19 IU/L (14-36); BUN Creatinine Ratio 18.6 (6-22); Bilirubin Total 0.3 mg/dL (0.2-1.3); Blood Urea Nitrogen 13 mg/dL (7-17); Calcium 8.9 mg/dL (8.4-10.2); Carbon Dioxide 28 mmol/L (22-32); Chloride 103 mmol/L (98-107); Cholesterol 239 mg/dL (140-199); Estimated Glomerular Filt Rate > 60 mL/min (>60); Globulin 2.2 g/dL (1.7-4.1); Glucose 96 mg/dL (70-100); HDL Cholesterol 63 mg/dL (40-60); HEMOLYSIS < 15 (0-50); LDL Cholesterol Calculated 164 mg/dL (<100); Potassium 4.1 mmol/L (3.4-5.1); Sodium 137 mmol/L (137-145); Total Protein 6.1 g/dL (6.3-8.2); Triglycerides 62 mg/dL (35-150); Uric Acid 4.4 mg/dL (2.5-6.2)
[2022-11-13 09:34] LABS: TSH w/ Reflex to FT4 1.39 uIU/mL (0.47-4.68)
== END ==
PROVIDERS: PCP Family Medicine; Referring Provider Physician Assistant; Visit Provider Physician Assistant
DX: M10.9 Gout, unspecified (principal); E78.5 Hyperlipidemia, unspecified; Z13.0 Encounter for screening for diseases of the blood and blood-forming organs and certain disorders involving the immune mechanism
CPT/HCPCS: 36415; 80053; 80061; 84443; 84550; 85025

== ENCOUNTER 2023-02-21 10:45 | Emergency (ER) | payer OTHER, SELFPAY ==
[2020-10-13 14:41] VITALS: BMI 31.6
[2023-02-21 10:50] VITALS: BP 154/90; PULSE 78; RESP 18; TEMP 36.9; O2SAT 98; BMI 31.6
--- NOTE | 2023-02-21 11:14 | ED_ITS ---
HPI - Extremity Injury (Lower) <ARAMIS Avila - Last Filed: 02/21/23 12:56> General Chief Complaint: Skin/Abscess/Foreign Body Stated Complaint: sliced finger oprn on broken glass Time Seen by Provider: 02/21/23 11:09 Source: patient Mode of arrival: Ambulatory History of Present Illness HPI Narrative: This is a 47-year-old female who presents to the emergency department with a finger laceration from broken glass. She states that she was holding a jar and to jar shattered when they touched each other causing a laceration down the medial aspect of her right hand 4th digit. She states that there is a long flap of skin and it is bleeding quite a bit. A pressure dressing is on and she is not had any further bleeding since it was placed. She denies numbness or tingling or sensation changes. Related Data Previous Rx's Medication Instructions Recorded sumatriptan succinate 100 mg 100 mg PO Q2-4H PRN migraine 11/07/21 tablet (Imitrex) headache #7 tabs acetaminophen 325 mg capsule 650 mg PO QID PRN pain #60 caps 02/07/22 (Tylenol) ibuprofen 200 mg tablet 400 mg PO Q6H #60 tabs 02/07/22 tizanidine 2 mg tablet See Rx Instructions .Route 09/27/22 .COMPLEX #90 tabs rizatriptan 10 mg tablet See Rx Instructions .Route 01/02/23 .COMPLEX #10 tabs trazodone 100 mg tablet See Rx Instructions .Route 01/02/23 .COMPLEX #45 tabs fluoxetine 40 mg capsule 40 mg PO DAILY #90 caps 02/11/23 hydrocodone 5 mg-acetaminophen 325 1 tab PO Q6H PRN pain #7 tabs 02/21/23 mg tablet Allergies Allergy/AdvReac Type Severity Reaction Status Date / Time No Known Drug Allergies Allergy Verified 02/15/22 15:29 Review of Systems <ARAMIS Avila - Last Filed: 02/21/23 12:56> Review of Systems ROS Unobtainable: All systems reviewed & are unremarkable except as noted in HPI and below Patient History <ARAMIS Avila - Last Filed: 02/21/23 12:56> Medical History Arthritis Chicken pox (1981) CTS (carpal tunnel syndrome) (2004) Current smoker (05/10/16) Depression (2015) Flank hernia Fractures (2010) GERD (gastroesophageal reflux disease) Herpes Lower extremity surgery planned Migraines (1986) Neuropathy Surgical History Anesthesia History of third molar tooth extraction Status post delivery (01/11/09) Family History Father Age: 74 Colon cancer Hypertension Grandfather Prostate cancer Heart disease Hypertension High cholesterol Grandmother Breast cancer Heart disease Brother No problems noted. Mother No problems noted. Grandfather No problems noted. Grandmother No problems noted. Sister No problems noted. Sister No problems noted. Social History marital status: household members: spouse and children Smoking Status: Former smoker alcohol intake: former substance use type: does not use Smoking Status: Former smoker tobacco type: cigarettes Substance Use Type: does not use Exam <ARAMIS Avila - Last Filed: 02/21/23 12:56> Narrative Exam Narrative: MSK: Patient is right-handed, avulsion laceration along the medial aspect without evidence of tendon injury. Patient has a brisk cap refill, avulsion flap sutured to base to act as a protective layer, there was still perfusion at least mcfp through the flap with a cap refill. Patient tolerated well, 13 sutures were excised, hemostatic afterwards, patient was splinted in extension and encouraged to keep covered with a bulky gauze dressing intact as a splint and follow-up with Plastic surgery. Initial Vital Signs Initial Vital Signs: Vital Signs Temperature 98.4 F 02/21/23 10:50 Pulse Rate 78 02/21/23 10:50 Respiratory Rate 18 02/21/23 10:50 Blood Pressure 154/90 H 02/21/23 10:50 Pulse Oximetry 98 02/21/23 10:50 Oxygen Delivery Method Room Air 02/21/23 10:50 <Harleen Landaverde DO - Last Filed: 02/21/23 19:05> Initial Vital Signs Initial Vital Signs: Vital Signs Temperature 98.4 F 02/21/23 10:50 Pulse Rate 78 02/21/23 10:50 Respiratory Rate 18 02/21/23 10:50 Blood Pressure 154/90 H 02/21/23 10:50 Pulse Oximetry 98 02/21/23 10:50 Oxygen Delivery Method Room Air 02/21/23 10:50 Procedures <ARAMIS Avila - Last Filed: 02/21/23 12:56> Laceration Repair Laceration 1: Site: hand Side (If applicable): right Size (cm): 10 Description: linear, flap and irregular Depth: simple, single layer Local Anesthetic: lidocaine 2% (Digital block was effective with 3 mL of lidocaine 2%) Pre-repair: wound explored, irrigated extensively (With 500 mL of normal saline) and deep structures intact Skin layer closed with: nylon Skin layer suture size: 5-0 Number of sutures: 13 Technique: simple, interrupted Course <ARAMIS Avila - Last Filed: 02/21/23 12:56> Orders Ordered: Discontinued Medications Hydrocodone Bitart/Acetaminophen (Hydrocodone/Acet 5/325 Tablet) 1 tab PO NOW ONE Stop: 02/21/23 11:43 Last Admin: 02/21/23 11:51 Dose: 1 tab Documented By: MARC Ibuprofen (Ibuprofen 400 Mg Tablet) 400 mg PO NOW ONE Stop: 02/21/23 11:43 Last Admin: 02/21/23 11:51 Dose: 400 mg Documented By: MARC Lidocaine HCl (Lidocaine 2% Inj Sdv 5ml) 5 ml INJ INTRA-OP ONE Stop: 02/21/23 11:12 Last Admin: 02/21/23 11:23 Dose: 5 ml Documented By: MARC Vital Signs Vital signs: Vital Signs - 8 hr 02/21/23 10:50 Temperature 98.4 F Pulse Rate 78 Respiratory Rate 18 Blood Pressure 154/90 H Pulse Oximetry 98 Oxygen Delivery Method Room Air <Harleen Landaverde DO - Last Filed: 02/21/23 19:05> Orders Ordered: Discontinued Medications Hydrocodone Bitart/Acetaminophen (Hydrocodone/Acet 5/325 Tablet) 1 tab PO NOW ONE Stop: 02/21/23 11:43 Last Admin: 02/21/23 11:51 Dose: 1 tab Documented By: MARC Ibuprofen (Ibuprofen 400 Mg Tablet) 400 mg PO NOW ONE Stop: 02/21/23 11:43 Last Admin: 02/21/23 11:51 Dose: 400 mg Documented By: MARC Lidocaine HCl (Lidocaine 2% Inj Sdv 5ml) 5 ml INJ INTRA-OP ONE Stop: 02/21/23 11:12 Last Admin: 02/21/23 11:23 Dose: 5 ml Documented By: MARC Vital Signs Vital signs: Vital Signs - 8 hr 02/21/23 10:50 Temperature 98.4 F Pulse Rate 78 Respiratory Rate 18 Blood Pressure 154/90 H Pulse Oximetry 98 Oxygen Delivery Method Room Air MDM - Extremity Injury (Lower) <Lori Silva, [facility] - Last Filed: 02/21/23 12:56> MDM Narrative Medical decision making narrative: Chief Complaint: Finger laceration/avulsion flap Multiple etiologies for patient's complaint considered including, but not limited to: Skin laceration, vascular injury, nerve injury, tendon laceration/rupture, partial amputation I have independently reviewed the patient's vital signs and nursing notes as well as prior records if available. Patient's pain was treated with hydrocodone, ibuprofen, her tetanus vaccination is up-to-date and she does not need another, her L and I paperwork was complete d, her claim number is [id number]. Plan: On exam, patient has a long flap of skin that was everted and thoroughly irrigated with normal saline, no foreign bodies, no evidence of glass on visualization, good vascularization, patient is neurovascularly intact, suture repair was complicated only due to location. Patient was hemostatic after laceration repair including 13 sutures. She has brisk cap refill following procedure, she was splinted with a bulky gauze dressing after the wound was covered with Xeroform, encouraged to have her sutures removed in 10 days and follow-up with plastic surgery in [place]. Social considerations that may affect disposition: none Questions are addressed and there is agreement with the plan and for follow-up. I consulted with the ED attending physician Dr. Landaverde as needed for higher level of care considerations and they were available for discussion and recommendations regarding plan of care and diagnostic testing. Patient is appropriate for outpatient management. Discharge Plan Departure Patient Disposition: Home Clinical Impression: Work related injury Finger laceration with complication Qualifiers: Encounter type: initial encounter Qualified Code(s): S61.219A - Laceration wit hout foreign body of unspecified finger without damage to nail, initial encounter Instructions: DI for Laceration Repair -- Finger Activity Restrictions/Additional Instructions: *You have been diagnosed with a complicated finger laceration. I do not think you have any tendon or vessel injury, if you have numbness or tingling that is persistent, mobility issues other than this swelling, worsening pain or signs of infection, please come back to the emergency department. Please follow-up with [place] plastic surgery for a recheck, I have forwarded a message to the office, please have your sutures removed in 10 days or at the discretion of the clinic. It was a pleasure to meet you, your tetanus vaccination is up-to-date, please use the pain pills as needed, Tylenol and ibuprofen in addition to this, cover with topical antibiotic ointment as tolerated and then keep it covered with a Band-Aid at minimum, a bulky dressing to splint the joint or a small piece of gauze was a couple of Band-Aid. Keep it dry other than ointment. Okay to shower as usual but please try not to bend this finger. *What to do: *Please continue to take your regular medications as directed. [x ] New medication prescriptions sent to your pharmacy: [[facility] ] [ ] New medication written as a paper prescription [ ] No new medications given *Please call and schedule follow up with your primary care provider in 2-3 days, at least for an update. Let them know you were seen in the Emergency Department for the above problem. We will electronically transmit a record of today's note if your PCP or specialist is in our system. *If you do not have a primary care provider please contact [phone] to establish care with one of the [facility] primary care providers. *Return to the Emergency Department for worsening symptoms, inability to keep liquids down, fever greater than 101F, chills, or other concerning symptom. Prescriptions: New hydrocodone-acetaminophen 5-325 mg tablet 1 tab PO Q6H PRN (Reason: pain) Qty: 7 0RF No Action sumatriptan succinate [Imitrex] 100 mg tablet 100 mg PO Q2-4H PRN (Reason: migraine headache) Qty: 7 1RF Patient Comments: approx 1 month ago Rx Instructions: Take one tablet at onset may repeat in 2 hours to a total of 2 tabs in 24 hours tizanidine 2 mg tablet See Rx Instructions .ROUTE .COMPLEX Qty: 90 1RF Dose Instruction: Take 1 tablet (2 mg) by mouth 3 times daily as needed for muscle spasticity. Rx Instructions: Take 1 tablet (2 mg) by mouth 3 times daily as needed for muscle spasticity. rizatriptan 10 mg tablet See Rx Instructions .ROUTE .COMPLEX Qty: 10 5RF Dose Instruction: Take 1 tablet (10 mg) by mouth at onset of migraine headache. May repeat in 2 hours if needed to a maximum of 3 tabs in 24 hours. Rx Instructions: Take 1 tablet (10 mg) by mouth at onset of migraine headache. May repeat in 2 hours if needed to a maximum of 3 tabs in 24 hours. trazodone 100 mg tablet See Rx Instructions .ROUTE .COMPLEX Qty: 45 1RF Dose Instruction: Take 1-1.5 tablets (100-150 mg) by mouth at bedtime as needed for sleep Rx Instructions: Take 1-1.5 tablets (100-150 mg) by mouth at bedtime as needed for sleep fluoxetine 40 mg capsule 40 mg PO DAILY Qty: 90 3RF ibuprofen 200 mg tablet 400 mg PO Q6H Qty: 60 0RF acetaminophen [Tylenol] 325 mg capsule 650 mg PO QID PRN (Reason: pain) Qty: 60 0RF Referrals: [facility] [place] [Provider Group] (Please schedule follow-up appointment with 1 of the providers for a recheck within the next week.) Darío Vincent MD [Primary Care Provider] - Stand Alone Forms: Patient Portal/API <Harleen Landaverde DO - Last Filed: 02/21/23 19:05> [facility] Attestation: I was immediately available in the department for consultation. Documentation has been reviewed.
[2023-02-21] MEDS: LIDOCAINE 2% INJ SDV 5ML 5 ML INJ (11:23)
[2023-02-21] MEDS: HYDROCODONE/ACET 5/325 TABLET 1 TAB PO (11:51)
[2023-02-21] MEDS: IBUPROFEN 400 MG TABLET PO (11:51)
== END 2023-02-21 12:56 | disposition home or self-care (01) ==
PROVIDERS: Emergency Provider Nurse Practitioner Critical Care Medicine; PCP Family Medicine
DX: S61.214A Laceration without foreign body of right ring finger without damage to nail, initial encounter (principal); W25.XXXA Contact with sharp glass, initial encounter; Y99.0 Civilian activity done for income or pay
CPT/HCPCS: 12004; 99283

== ENCOUNTER → 2023-03-05 17:11 | Outpatient (CLI) | payer OTHER, SELFPAY ==
[2020-10-13 14:41] VITALS: BMI 31.6
--- NOTE | 2023-03-05 17:16 | DI.RAD.S_ITS ---
PROCEDURE: XR ANKLE LT MIN 3V INDICATIONS: Pain and swelling L ankle TECHNIQUE: 3 views of the ankle were acquired. COMPARISON: [facility], , ANKLE 3 VIEWS LEFT, 07/08/2014, 10:52. FINDINGS: Bones: No fractures or dislocations. Ankle mortise is normally aligned. No suspicious bony lesions. No bony erosions. Soft tissues: No tibiotalar joint effusion. Achilles tendon appears normal. Lateral malleolar soft tissue swelling. No soft tissue tophus. Prominent plantar calcaneal enthesophyte. IMPRESSION: 1. No acute bony abnormality. 2. Lateral malleolar soft tissue swelling. 3. Calcaneal enthesopathy. Dictated by: Javad Soto [facility] Interpreted: Sandip Decker MD on 03/05/2023 at 20:16 Transcribed by: YOSELIN on 03/06/2023 at 8:08 Approved by: Sandip Decker M.D. on 03/06/2023 at 12:07
== END ==
PROVIDERS: PCP Family Medicine; Referring Provider Physician Assistant; Visit Provider Physician Assistant
DX: M25.572 Pain in left ankle and joints of left foot (principal); M79.89 Other specified soft tissue disorders; M77.32 Calcaneal spur, left foot
CPT/HCPCS: 73610